=== PATIENT | female | born 1970 | race Caucasian/White ===

== ENCOUNTER 2017-04-19 14:05 | Emergency (ER) | payer OTHER ==
[~2017-04-19] VITALS: Ht 170.2 cm; Wt 64.7 kg
[~2017-04-19 14:05] MED LIST: HYDR-3533 PO; REVLIMID PO
[2017-04-19 14:11] VITALS: BP 124/68; PULSE 76; RESP 18; TEMP 98; O2SAT 98
[2017-04-19] MEDS ORDERED: SODIUM CHLOR 0.9% 1000 ML INJ 1,000 ML IV SCH (15:01)
--- NOTE | 2017-04-19 15:06 | PD ---
HPI Chief Complaint: Abdominal Pain Time Seen by Provider: 14:55 Travel History International Travel<30 days: No Contact w/Intl Traveler<30days: No Traveled to known affect area: No History of Present Illness HPI The patient is a 46-year-old female who presents to the emergency department for epigastric abdominal pain. The patient states she's had some mild nausea over the last 3 days but developed epigastric abdominal pain at approximately 8 AM. The abdominal pain is located in epigastrium, radiates to the left upper and right upper quadrants, sharp, constant, and assisted with mild nausea. The patient denies any vomiting. The patient does have a history of similar pain several years ago when she had her gallbladder removed by Dr. Liu. She denies any known history of pancreatitis. She denies any alcohol abuse. The patient denies any precipitating factors such as eating prior to the onset of pain. She does have a history of tubal ligation with previous menopause, denies . She denies any dysuria, frequency, urgency, fever , chills, chest pain, shortness breath, or cough. Symptoms are moderate without any exacerbating factors. She did take ibuprofen prior to arrival with mild alleviation of her pain. PFSH Past Medical History Cancer: Yes (MULTPLE MYELOMA- REMISSION) Chemotherapy: No ?: Not Past Surgical History Narrative Surgical Cholecystectomy, tubal ligation Social History Alcohol Use: No Tobacco Use: No Substance Use: No Allergies-Medications (Allergen,Severity, Reaction): Coded Allergies: No Known Allergies (Unverified , 02/05/16) Reported Meds & Prescriptions Reported Meds & Active Scripts Active No Active Prescriptions or Reported Medications Review of Systems Except as stated in HPI: all other systems reviewed are Neg General / Constitutional: No: Fever, Chills Cardiovascular: No: Chest Pain or Discomfort Respiratory: No: Cough, Shortness of Breath Gastrointestinal: Positive: Nausea, Abdominal Pain, No: Vomiting, Diarrhea, Constipation, Changes in Bowel Habits, Loss of Appetite Genitourinary: No: Dysuria Physical Exam Narrative GENERAL: Awake, alert, very pleasant 46-year-old female who appears her stated age and is in no acute respiratory distress. SKIN: Focused skin assessment warm/dry. HEAD: Atraumatic. Normocephalic. EYES: Mild ptosis of the right upper eyelid. No injection or drainage noted. ENT: No nasal bleeding or discharge. Mucous membranes pink and moist. No visible teeth. NECK: Trachea midline. No JVD. CARDIOVASCULAR: Regular rate and rhythm. No murmur appreciated. RESPIRATORY: No accessory muscle use. Clear to auscultation. Breath sounds equal bilaterally. GASTROINTESTINAL: Abdomen soft, mild epigastric tenderness. Negative McBurney' s. No rebound tenderness, guarding, or rigidity. MUSCULOSKELETAL: No obvious deformities. No clubbing. No cyanosis. No edema. NEUROLOGICAL: Awake and alert. No obvious cranial nerve deficits. Motor grossly within normal limits. Normal speech. PSYCHIATRIC: Appropriate mood and affect; insight and judgment normal. Data Data Last Documented VS Vital Signs Date Time Temp Pulse Resp B/P Pulse Ox O2 Delivery O2 Flow Rate FiO2 04/19/17 14:11 98.0 76 18 124/68 98 Orders Complete Blood Count With Diff (04/19/17 15:01) Comprehensive Metabolic Panel (04/19/17 15:01) Lipase (04/19/17 15:01) Iv Access Insert/Monitor (04/19/17 15:01) Ecg Monitoring (04/19/17 15:01) Oximetry (04/19/17 15:01) Morphine Inj (Morphine Inj) (04/19/17 15:15) Ondansetron Inj (Zofran Inj) (04/19/17 15:15) Sodium Chlor 0.9% 1000 Ml Inj (Ns 1000 M (04/19/17 15:01) Sodium Chloride 0.9% Flush (Ns Flush) (04/19/17 15:15) Famotidine Inj (Pepcid Inj) (04/19/17 15:15) Al-Mag Hy-Si 40-40-4 Mg/Ml Liq (Mag-Al P (04/19/17 15:15) Lidocaine 2% Viscous (Xylocaine 2% Visco (04/19/17 15:15) Labs Laboratory Tests Test 04/19/17 15:36 White Blood Count 3.6 TH/MM3 Red Blood Count 4.35 MIL/MM3 Hemoglobin 13.0 GM/DL Hematocrit 38.5 % Mean Corpuscular Volume 88.6 FL Mean Corpuscular Hemoglobin 29.8 PG Mean Corpuscular Hemoglobin 33.6 % Concent Red Cell Distribution Width 12.9 % Platelet Count 142 TH/MM3 Mean Platelet Volume 7.4 FL Neutrophils (%) (Auto) 56.5 % Lymphocytes (%) (Auto) 31.9 % Monocytes (%) (Auto) 9.2 % Eosinophils (%) (Auto) 2.0 % Basophils (%) (Auto) 0.4 % Neutrophils # (Auto) 2.0 TH/MM3 Lymphocytes # (Auto) 1.2 TH/MM3 Monocytes # (Auto) 0.3 TH/MM3 Eosinophils # (Auto) 0.1 TH/MM3 Basophils # (Auto) 0.0 TH/MM3 CBC Comment DIFF FINAL Differential Comment Sodium Level 140 MEQ/L Potassium Level 3.9 MEQ/L Chloride Level 106 MEQ/L Carbon Dioxide Level 28.1 MEQ/L Anion Gap 6 MEQ/L Blood Urea Nitrogen 13 MG/DL Creatinine 0.83 MG/DL Estimat Glomerular Filtration 74 ML/MIN Rate Random Glucose 94 MG/DL Calcium Level 9.4 MG/DL Total Bilirubin 0.4 MG/DL Aspartate Amino Transf 13 U/L (AST/SGOT) Alanine Aminotransferase 23 U/L (ALT/SGPT) Alkaline Phosphatase 47 U/L Total Protein 7.2 GM/DL Albumin 3.6 GM/DL Lipase 189 U/L [facility] Medical Decision Making Medical Screen Exam Complete: Yes Emergency Medical Condition: Yes Medical Record Reviewed: Yes Interpretation(s) Laboratory Tests Test 04/19/17 15:36 White Blood Count 3.6 TH/MM3 Red Blood Count 4.35 MIL/MM3 Hemoglobin 13.0 GM/DL Hematocrit 38.5 % Mean Corpuscular Volume 88.6 FL Mean Corpuscular Hemoglobin 29.8 PG Mean Corpuscular Hemoglobin 33.6 % Concent Red Cell Distribution Width 12.9 % Platelet Count 142 TH/MM3 Mean Platelet Volume 7.4 FL Neutrophils (%) (Auto) 56.5 % Lymphocytes (%) (Auto) 31.9 % Monocytes (%) (Auto) 9.2 % Eosinophils (%) (Auto) 2.0 % Basophils (%) (Auto) 0.4 % Neutrophils # (Auto) 2.0 TH/MM3 Lymphocytes # (Auto) 1.2 TH/MM3 Monocytes # (Auto) 0.3 TH/MM3 Eosinophils # (Auto) 0.1 TH/MM3 Basophils # (Auto) 0.0 TH/MM3 CBC Comment DIFF FINAL Differential Comment Sodium Level 140 MEQ/L Potassium Level 3.9 MEQ/L Chloride Level 106 MEQ/L Carbon Dioxide Level 28.1 MEQ/L Anion Gap 6 MEQ/L Blood Urea Nitrogen 13 MG/DL Creatinine 0.83 MG/DL Estimat Glomerular Filtration 74 ML/MIN Rate Random Glucose 94 MG/DL Calcium Level 9.4 MG/DL Total Bilirubin 0.4 MG/DL Aspartate Amino Transf 13 U/L (AST/SGOT) Alanine Aminotransferase 23 U/L (ALT/SGPT) Alkaline Phosphatase 47 U/L Total Protein 7.2 GM/DL Albumin 3.6 GM/DL Lipase 189 U/L Differential Diagnosis Differential diagnosis includes gastritis, peptic ulcer disease, pancreatitis, retained biliary stone, GERD. Narrative Course IV was established, labs are drawn and sent, and the patient was placed on cardiac telemetry monitoring and continuous pulse oximetry monitoring. Patient was administer morphine, Zofran, Pepcid, GI cocktail, and IV fluids. Lipase and LFTs were sent to lab. Labs are essentially unremarkable, LFTs and lipase are within normal limits. The patient was reevaluated at 4 PM. The patient still had mild discomfort, therefore, was redosed with pain medications. The patient appears to have gastritis and/or peptic ulcer disease. The patient will be placed on H2 blockers, so advised to follow-up with her primary physician and/or for GI for outpatient follow-up and possible endoscopy. The patient agrees and understands. No acute indication for imaging. Diagnosis Primary Impression: Epigastric abdominal pain Additional Impression: Gastritis Qualified Code: K29.00 - Acute gastritis, presence of bleeding unspecified, unspecified gastritis type Patient Instructions: General Instructions Additional Instructions: Medications as directed. Follow-up with a primary physician and/or patient accounts manager if symptoms persist. Please provide the patient a copy of her lab results at discharge. Med/Other Pt SpecificInfo: Prescription(s) given Scripts Ranitidine (Zantac 150 Maximum Strength)150 Mg [id number] Mg PO BID 28 Days Prov:Pritesh Kyle MD 04/19/17 Disposition: 01 DISCHARGE HOME Condition: Stable Pritesh Kyle MD Apr 19, 2017 15:06
[2017-04-19] MEDS ORDERED: MORPHINE SULFATE 4 MG/ML INJ IV PUSH ONE ×2 (15:15→16:15)
[2017-04-19] MEDS ORDERED: LIDOCAINE VISCOUS 2% SOLN 15 ML UDC PO ONE (15:15)
[2017-04-19] MEDS ORDERED: SODIUM CHLORIDE 0.9% FLUSH 10 ML FLUSH IV FLUSH PRN (15:15)
[2017-04-19] MEDS ORDERED: ONDANSETRON HCL 4 MG/2 ML VIAL IVP ONE (15:15)
[2017-04-19] MEDS ORDERED: FAMOTIDINE 20 MG/2 ML VIAL IV PUSH ONE (15:15)
[2017-04-19] MEDS ORDERED: ALUMINUM/MAGNESIUM/SIMETH 30 ML CUP PO ONE (15:15)
[2017-04-19 15:39] LABS: BASOPHIL % 0.4 % (0.0-2.0); EOSINOPHIL # 0.1 TH/MM3 (0-0.4); HEMATOCRIT 38.5 % (35.0-46.0); HEMO FLAGS DIFF FINAL; LYMPH % 31.9 % (9.0-44.0); LYMPHOCYTE # 1.2 TH/MM3 (1.0-4.8); MEAN CELL VOLUME 88.6 FL (80.0-100.0); MEAN CORPUSCULAR HEMOGLOBIN 29.8 PG (27.0-34.0); MEAN CORPUSCULAR HGB CONC 33.6 % (32.0-36.0); MONO % 9.2 % (0.0-8.0); NEUT % 56.5 % (16.0-70.0); PLATELET COUNT 142 TH/MM3 (150-450); RED BLOOD COUNT 4.35 MIL/MM3 (4.00-5.30); RED CELL DISTRIBUTION WIDTH 12.9 % (11.6-17.2); WHITE BLOOD COUNT 3.6 TH/MM3 (4.0-11.0)
[2017-04-19 15:48] LABS: CHLORIDE 106 MEQ/L (98-107); POTASSIUM 3.9 MEQ/L (3.5-5.1); SODIUM (NA) 140 MEQ/L (136-145)
[2017-04-19 15:52] LABS: ANION GAP 6 MEQ/L (5-15); BICARBONATE 28.1 MEQ/L (21.0-32.0); BLOOD UREA NITROGEN 13 MG/DL (7-18)
[2017-04-19 15:55] LABS: ALT (GPT) 23 U/L (10-53); AST (GOT) 13 U/L (15-37); GLOMERULAR FILTRATION RATE 74 ML/MIN (>89)
[2017-04-19 15:56] LABS: TOTAL BILIRUBIN ADULT 0.4 MG/DL (0.2-1.0)
[2017-04-19 15:58] LABS: ALKALINE PHOSPHATASE 47 U/L (45-117)
[2017-04-19] MEDS ORDERED: ZANTTAB PO (16:03)
== END 2017-04-19 17:06 | disposition home or self-care (01) ==
LOC: PHED 14:05
DX: R10.13 Epigastric pain (principal); K29.00 Acute gastritis without bleeding
CPT/HCPCS: 80053; 83690; 85025; 96361; 96374; 96375; 99284; J2270; J2405; J7030

== ENCOUNTER 2018-03-01 12:57 | Emergency (ER) | payer SELFPAY ==
[~2018-03-01] VITALS: Ht 170.2 cm; Wt 68.1 kg
[~2018-03-01 12:57] MED LIST changes: -HYDR-3533 PO; -REVLIMID PO; +ZANTTAB PO
[2018-03-01 13:02] VITALS: BP 117/56; PULSE 52; RESP 16; TEMP 97.2; O2SAT 100
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
[2018-03-01] MEDS ORDERED: MORPHINE SULFATE 4 MG/ML INJ IV PUSH ONE (14:00)
[2018-03-01] MEDS ORDERED: MORPHINE SULFATE 2 MG/ML SYRINGE IV PUSH ONE (14:15)
[2018-03-01 14:19] LABS: BILIRUBIN, URINE NEG (NEG); BLOOD, URINE NEG (NEG); GLUCOSE,URINE NEG (NEG); KETONE, URINE NEG (NEG); NITRITE,URINE NEG (NEG); URINE COLOR YELLOW (YELLW/STRAW); URINE LEUKOCYTE ESTERASE NEG (NEG)
[2018-03-01 14:22] LABS: AUTOMATED NEUTROPHIL # 2.1 TH/MM3 (1.8-7.7); BASOPHIL # 0.1 TH/MM3 (0-0.2); EOSINOPHIL # 0.1 TH/MM3 (0-0.4); EOSINOPHIL % 2.4 % (0.0-4.0); HEMOGLOBIN 13.1 GM/DL (11.6-15.3); LYMPH % 28.2 % (9.0-44.0); MEAN CELL VOLUME 91.2 FL (80.0-100.0); MEAN CORPUSCULAR HEMOGLOBIN 30.6 PG (27.0-34.0); MEAN CORPUSCULAR HGB CONC 33.5 % (32.0-36.0); MEAN PLATELET VOLUME 7.2 FL (7.0-11.0); MONO % 8.9 % (0.0-8.0); MONOCYTE # 0.3 TH/MM3 (0-0.9); NEUT % 58.5 % (16.0-70.0); PLATELET COUNT 158 TH/MM3 (150-450); RED BLOOD COUNT 4.28 MIL/MM3 (4.00-5.30); RED CELL DISTRIBUTION WIDTH 12.6 % (11.6-17.2); WHITE BLOOD COUNT 3.6 TH/MM3 (4.0-11.0)
[2018-03-01 14:23] LABS: SQUAMOUS EPITHELIAL CELL URINE 0-5 /hpf (0-5)
[2018-03-01 14:26] VITALS: BP 119/69; PULSE 68; RESP 16; O2SAT 98
[2018-03-01 14:30] LABS: CHLORIDE 108 MEQ/L (98-107); SODIUM (NA) 143 MEQ/L (136-145)
[2018-03-01 14:33] LABS: CALCIUM 8.6 MG/DL (8.5-10.1)
[2018-03-01 14:34] LABS: ALBUMIN 3.4 GM/DL (3.4-5.0); BICARBONATE 28.7 MEQ/L (21.0-32.0); BLOOD UREA NITROGEN 10 MG/DL (7-18); GLUCOSE,RANDOM 82 MG/DL (74-106)
[2018-03-01 14:36] LABS: ALT (GPT) 19 U/L (10-53)
[2018-03-01 14:37] LABS: AST (GOT) 13 U/L (15-37); GLOMERULAR FILTRATION RATE 89 ML/MIN (>89)
[2018-03-01 14:38] LABS: TOTAL BILIRUBIN ADULT 0.3 MG/DL (0.2-1.0); TOTAL PROTEIN 6.8 GM/DL (6.4-8.2)
[2018-03-01 14:39] LABS: ALKALINE PHOSPHATASE 42 U/L (45-117)
[2018-03-01] MEDS ORDERED: diphenhydrAMINE HCL 50 MG/ML VIAL IV PUSH ONE (14:45)
[2018-03-01] MEDS ORDERED: IOHEXOL 350 MG/ML 10 ML VIAL (for RAD DIAG) IVCONTRAST ONE (15:10)
[2018-03-01 15:28] VITALS: BP 110/67; PULSE 47; RESP 16; O2SAT 98
--- NOTE | 2018-03-01 15:32 | RADRPT ---
EXAM DATE: 03/01/2018 3:13 PM EDT AGE/SEX: 47 years / Female INDICATIONS: Epigastric and left upper abdominal pain. CLINICAL DATA: This is the patient's initial encounter. Patient reports that signs and symptoms have been present for 3 days and indicates a pain score of 6/10. MEDICAL/SURGICAL HISTORY: . Multiple myeloma. Cholecystectomy. Tubal ligation. Bone marrow tr ansplant. ORAL CONTRAST: No oral contrast ingested. RADIATION DOSE: 8.56 CTDI (mGy) COMPARISON: No prior exams available for comparison. TECHNIQUE: Multiple contiguous axial images were obtained through the abdomen and pelvis following b olus infusion of 85 ml Omnipaque 350 (iohexol) nonionic water-soluble contrast as a single exam dos e. No oral contrast ingested. Using automated exposure control and adjustment of the mA and/or kV ac cording to patient size, radiation dose was kept as low as reasonably achievable to obtain optimal di agnostic quality images. DICOM format image data is available electronically for review and comparis on. FINDINGS: The visualized portion of lung bases clear. The appearance of the liver, spleen, pancreas, adrenal glands and kidneys is within normal limits. The abdominal aorta is normal in caliber. There is no retroperitoneal adenopathy. The visualized loops of small and large bowel in the upper abdomen are unremarkable. Imaging through the pelvis demonstrates free fluid within the pelvis. There are no findings to indica te a bowel obstruction. The patient is post hysterectomy. No iliac or inguinal adenopathy is present. Bone windowed imaging is provided. These demonstrate numerous lytic lesions throughout the spine and pelvis most consistent with multiple myeloma. CONCLUSION: 1. Lytic lesions throughout the osseous structures system with the patient's known history of multip le myeloma. 2. There is free fluid within the pelvis. 3. No findings to indicate a bowel obstruction are identified. Electronically signed by: Kash Jonas MD 03/01/2018 3:31 PM EDT
[2018-03-01] MEDS ORDERED: SUCR1TAB PO (15:49)
[2018-03-01] MEDS ORDERED: ZANTTAB PO (15:49)
--- NOTE | 2018-03-01 15:50 | PD ---
Data Data Last Documented VS Vital Signs Date Time Temp Pulse Resp B/P (MAP) Pulse Ox O2 Delivery O2 Flow Rate FiO2 03/01/18 15:28 47 16 110/67 (81) 98 Room Air 03/01/18 13:02 97.2 Orders Orders Complete Blood Count With Diff (03/01/18 13:49) Comprehensive Metabolic Panel (03/01/18 13:49) Lipase (03/01/18 13:49) Ct Abd/Pel W Iv Contrast(Rout) (03/01/18 13:49) Morphine Inj (Morphine Inj) (03/01/18 14:00) Ed Urine Pregnancytest Poc (03/01/18 13:49) Urinalysis - C+S If Indicated (03/01/18 13:49) Morphine Inj (Morphine Inj) (03/01/18 14:15) Diphenhydramine Inj (Benadryl Inj) (03/01/18 14:45) Iohexol 350 Inj (Omnipaque 350 Inj) (03/01/18 15:10) Labs Laboratory Tests Test 03/01/18 14:10 03/01/18 14:14 Urine Color YELLOW Urine Turbidity CLEAR Urine pH 6.[address] 1.025 Urine Protein NEG mg/dL Urine Glucose (UA) NEG mg/dL Urine Ketones NEG mg/dL Urine Occult Blood NEG Urine Nitrite NEG Urine Bilirubin NEG Urine Urobilinogen 0.2 MG/DL Urine Leukocyte Esterase NEG Urine Squamous Epithelial Cells 0-5 /hpf Microscopic Urinalysis Comment CULT NOT INDICATED White Blood Count 3.6 TH/MM3 Red Blood Count 4.28 MIL/MM3 Hemoglobin 13.1 GM/DL Hematocrit 39.0 % Mean Corpuscular Volume 91.2 FL Mean Corpuscular Hemoglobin 30.6 PG Mean Corpuscular Hemoglobin Concent 33.5 % Red Cell Distribution Width 12.6 % Platelet Count 158 TH/MM3 Mean Platelet Volume 7.2 FL Neutrophils (%) (Auto) 58.5 % Lymphocytes (%) (Auto) 28.2 % Monocytes (%) (Auto) 8.9 % Eosinophils (%) (Auto) 2.4 % Basophils (%) (Auto) 2.0 % Neutrophils # (Auto) 2.1 TH/MM3 Lymphocytes # (Auto) 1.0 TH/MM3 Monocytes # (Auto) 0.3 TH/MM3 Eosinophils # (Auto) 0.1 TH/MM3 Basophils # (Auto) 0.1 TH/MM3 CBC Comment DIFF FINAL Differential Comment Blood Urea Nitrogen 10 MG/DL Creatinine 0.70 MG/DL Random Glucose 82 MG/DL Total Protein 6.8 GM/DL Albumin 3.4 GM/DL Calcium Level 8.6 MG/DL Alkaline Phosphatase 42 U/L Aspartate Amino Transf (AST/SGOT) 13 U/L Alanine Aminotransferase (ALT/SGPT) 19 U/L Total Bilirubin 0.3 MG/DL Sodium Level 143 MEQ/L Potassium Level 3.5 MEQ/L Chloride Level 108 MEQ/L Carbon Dioxide Level 28.7 MEQ/L Anion Gap 6 MEQ/L Estimat Glomerular Filtration Rate 89 ML/MIN Lipase 135 U/L MDM Supervised Visit with PHIL: No Narrative Course The history, exam, and medical decision-making in the associated midlevel provider note were completed with my assistance. I reviewed and agree with the findings presented. I attest that I had a [id number] encounter with the patient on the same day, and personally performed and documented my assessment and findings in the medical record. *My assessment and Findings: This is a 47-year-old female who has history of multiple myeloma which is reportedly in remission who presents to the emergency department with epigastric abdominal pain. Labs are all reassuring. CT abdomen pelvis demonstrates lytic lesions in the bones but no etiology of her abdominal pain. She had a similar episode last year which was attributed to gastritis. I suspect this is the same. Patient will be started on Zantac and Carafate and can follow-up with her primary care physician as an outpatient. She was asked to follow-up with her oncologist given the lytic lesions on her scan. Diagnosis Primary Impression: Gastritis Qualified Codes: K29.00 - Acute gastritis without bleeding Patient Instructions: General Instructions Additional Instruction: If you develop severe or worsening abdominal pain, fever>100.4, persistent vomiting or inability to eat or drink return to the emergency department immediately. Med/Other Pt SpecificInfo: Prescription(s) given Scripts Sucralfate (Sucralfate) 1 Gram Tab 1 GM PO TID for Duodenal ulcer, #90 TAB 0 Refills on empty stomach Prov: Lena Daily MD 03/01/18 Ranitidine (Zantac 150 Maximum Strength) 150 Mg Tab 150 MG PO BID for 28 Days, TAB Prov: Highet,Lena H. MD 03/01/18 Disposition: 01 DISCHARGE HOME Condition: Stable Lena Daily MD Mar 01, 2018 15:50
[2018-03-01 16:08] VITALS: BP 110/67
== END 2018-03-01 16:15 | disposition home or self-care (01) ==
LOC: PHED 12:57
DX: R10.13 Epigastric pain (principal); K29.00 Acute gastritis without bleeding; C90.01 Multiple myeloma in remission; Z88.5 Allergy status to narcotic agent; Z94.81 Bone marrow transplant status
CPT/HCPCS: 74177; 80053; 81001; 83690; 84703; 85025; 96374; 96375; 99285; J1200; J2270; Q9967